=== PATIENT | male | born 1950 | race Caucasian/White ===

== ENCOUNTER 2023-03-21 10:02 | Outpatient (CLI) | payer MEDICARE, OTHER, SELFPAY ==
--- NOTE | 2023-03-21 10:20 | ECG_ITS ---
Measurements Intervals [place] Rate: 69 P: 49 MD: 140 QRS: 12 QRSD: 93 T: 34 QT: 370 QTc: 398 Interpretive Statements SINUS RHYTHM NORMAL ECG NO PREVIOUS ECG AVAILABLE FOR COMPARISON Electronically Signed On 03-21-2023 15:58:59 ASSISTANT FINANCE DIRECTOR by Ben Gallardo M.D.
[2023-03-21 10:58] LABS: Prothrombin Time 13.3 Seconds (11.1-14.7)
[2023-03-21 10:59] LABS: Partial Thromboplastin Time 27.5 SECONDS (22.3-36.8)
== END 2023-03-21 10:03 | disposition home or self-care (01) ==
PROVIDERS: PCP Family Medicine Sports Medicine; Visit Provider Urology
DX: N20.0 Calculus of kidney (principal); I10 Essential (primary) hypertension; Z01.818 Encounter for other preprocedural examination
CPT/HCPCS: 36415; 85610; 85730; 87086; 93005

== ENCOUNTER 2023-03-30 03:07 | Day surgery (SDC) | payer MEDICARE, OTHER, SELFPAY ==
--- NOTE | 2023-03-15 08:21 | P.HP_ITS ---
History of Present Illness History of Present Illness Consent: Risks, benefits, and alternatives have been discussed and questions answered. Patient agrees to proceed with procedure. Chief complaint: Lt Renal Stones Narrative: Iker Brenner is a 72 year old male recently in the emergency department with a 2 mm painful obstructing ureteral stone that passed spontaneously. Imaging demonstrated, in addition, a 6 and 7 mm left renal stone. After discussion of options he has elected for left ESWL. He is aware the risk including, not limited to, need for additional procedures, hematuria and perinephric hematoma. Review of Systems Review of Systems: All systems reviewed & are unremarkable except as noted in HPI and below Exam Const: General: no acute distress Resp: Effort & Inspection: normal respiratory effort GI: Inspection: non-distended GI Palp: No abdominal tenderness and No Guarding due to palpation present (GI) Auscultation: normal bowel sounds Assessment and Plan Assessment and plan (1) Left renal stone: Code(s): N20.0 - Calculus of kidney Status: Acute Plan * Left ESWL
[2023-03-19 11:32] VITALS: BMI 26.4
--- NOTE | 2023-03-19 11:42 | PC.NURSE ---
PRE-OP INSTRUCTIONS, PLEASE READ CAREFULLY Report to the Outpatient Waiting Room, entrance under the green pavilion located off [facility], at time _0600_ on date _03/30/23_. Planned Procedure Time: _0730_. Time changes happen often and if your time is changed the preop area will call you the afternoon before. - You and your visitor will be asked to self-screen and do not enter if you have any COVID symptoms. - A mask is optional within the hospital at this time. Patients may have clear liquids (water, carbonated beverages, clear teas, apple juice) until 3 hours prior to surgery (0430 AM) with a maximum of 20 ounces. - No food from midnight until time of surgery Take the following medications with a SIP of water the morning of surgery: _NONE_ DO NOT STOP ANY OF YOUR OTHER PRESCRIPTION MEDICATIONS PRIOR TO SURGERY ?EXCEPT THE FOLLOWING Medications to discontinue per DR. CHANG - _SUPPLEMENTS 7 DAYS PRIOR TO SURGERY (PER PT), Date to take last dose 03/22/23_ Please no make-up, nail sri lankan, hairspray, perfume, deodorant, or body powder the day of surgery. No jewelry (including any body piercings) or valuables the day of surgery, leave them at home. Please take a shower or bath the night before, or the morning of, surgery with an antibacterial soap. Wear comfortable, loose fitting clothing. - Jewelry must be removed prior to entering the operating room. Rings and piercings that are not removed may be cut off. - The hospital will not accept responsibility for valuables. - Please leave all valuables, including medications, at home the day of surgery. If you are going home after surgery, a licensed [employer] truck driver must drive you home. - NO public transportation without another adult if you receive anesthesia. - We recommend that an adult stay with you for 24 hours following discharge. - We also recommend that you do not drive, make important decision, drink alcoholic beverages, or take any drugs that were not prescribed by your health care provider for at least 24 hours after your discharge time. Follow any additional instructions given to you from your surgeon. If you or anyone in your household have experienced Covid symptoms in the past week, please notify your surgeon or the nurse liaison at the phone number below for possible testing. Telephone instructions given to _PATIENT_and asked if any additional questions and then verbalized understanding. Patient advised to call surgeon office or pre surgery nurse liaison [phone] if any additional questions.
--- NOTE | ~2023-03-30 | XR_ITS ---
EXAMINATION: XR abdomen/kub 1V DATE: 03/30/2023 06:12 INDICATION: Kidney stone. TECHNIQUE: A supine view of the abdomen on 2 radiographs was obtained. COMPARISON: None. FINDINGS: There are no dilated loops of bowel. Calcifications in the pelvis are likely phleboliths. T he kidneys are obscured by bowel. 9 mm and 6 mm calcifications overlying left kidney are likely stone s. IMPRESSION: 1. Left kidney stones. Reviewed, dictated and finalized at location A. OUT TECHNICIAN IMPRESSION: 1. Left kidney stones.
[2023-03-30] MEDS: LACTATED RINGERS 1,000 ML 30 ML IV CONT (06:30)
--- NOTE | 2023-03-30 06:31 | WPDHPUPDATE1 ---
History and Physical Update Update Date/Time: 03/30/23 06:31 History and Physical has been reviewed, including an updated exam of the patient. There are NO changes in the patient's condition. Risks, benefits, and alternatives have been discussed and questions answered. Patient agrees to proceed with procedure.
[2023-03-30 06:48] VITALS: BP 146/76; PULSE 83; RESP 16; TEMP 36.7; O2SAT 99
--- NOTE | 2023-03-30 07:09 | P.PNAN_ITS ---
Anes - Initial Pre Proc Eval Procedure: Operation Date: 03/30/23 07:30 Proposed Procedures p Left Renal Extracorporeal Shock Wave Lithotripsy - Monty Carrlilo MD Date/Time: 03/30/23 07:09 Surgeon: Monty Carrillo MD Pre Op Diagnosis: Lt Renal Stones Patient Data Age: 72 Gender: M Height: 1.83 m Weight: 89.8 kg Last Vital Signs Temp 36.7 C 03/30/23 06:48 Pulse 83 03/30/23 06:48 Resp 16 03/30/23 06:48 BP 146/76 H 03/30/23 06:48 Pulse Ox 99 03/30/23 06:48 O2 Del Method Room Air 03/30/23 06:48 Allergies Allergy/AdvReac Type Severity Reaction Status Date / Time No Known Allergies Allergy Verified 03/30/23 06:13 Home Medications Medication Instructions Recorded Confirmed Type atorvastatin 20 mg tablet 20 mg HS 03/19/23 03/19/23 History cholecalciferol (vitamin D3) 25 25 mcg PO HS 03/19/23 03/19/23 History mcg (1,000 unit) capsule coenzyme Q10 100 mg capsule (Co 100 mg PO HS 03/19/23 03/19/23 History Q-10) latanoprost 0.005 % eye drops 1 drp HS 03/19/23 03/19/23 History lisinopril 20 mg tablet 20 mg HS 03/19/23 03/19/23 History Patient hx anesthesia problems: none Family hx anesthesia problems: none Results Review: All pre-operative results and documents have been reviewed as part of the pre- operative evaluation. [facility] Social History Social History Smoking packs per day: 1 Smoking cigarettes per day: 20.0 Years smoked: 6 Smoking pack-years: 6.00 Smoking status: Former smoker Tobacco type: cigarettes Second hand tobacco smoke exposure: No Smoking end date: 04/02/75 Alcohol intake: never Substance use: never Substance use type: does not use Living arrangements: with family Spiritual care concerns: No Anes - Eval Final PreProcedure Day of Procedure 03/30/23 07:09 Patient weight: overweight Heart: regular rate and rhythm Lungs: clear to auscultation Airway: Mallampati scale class II Neurological: alert and oriented Last oral intake: >/= 8 hours ASA classification: III Emergent: no Anesthetic plan: proceed Anesthesia type and monitoring: general LMA and standard monitoring Results Review: All pre-operative results and documents have been reviewed as part of the pre-operative evaluation. Informed Consent: The patient's anesthetic plan and its attendant risks and benefits were discussed with the patient/family/POA. Questions were solicited and answers provided to the satisfaction of the patient/family/POA.
[2023-03-30] MEDS: ceFAZolin 2 GM/D5W 50 ML 2 GM/50 ML BAG IVPB (07:24)
--- NOTE | 2023-03-30 07:51 | W.PM.PROC2 ---
Procedure Note - Detailed Date of Procedure 03/30/23 Pre-op Diagnosis Left Renal Stones Post-op Diagnosis Same Procedure Performed Left ESWL Surgeon Monty Carrillo MD Anesthesia General Description of Procedure The patient was brought to the operative suite where supine was placed in the supine position on the Dornier lithotripsy table. Two stones in the left lower pole renal calyx, each measuring approximately 5-6mm, were treated with 2500 shocks at a power setting of 1-4 using the Dornier lithotriptor - spliting the shock essentially equally between each stone. There appeared to be excellent fragmentation of the stone. The patient tolerated the procedure well and was taken to the recovery room in good condition. Complications No immediate complications Condition Stable Disposition PACU
[2023-03-30] MEDS: KETOROLAC 15 MG/ML VIAL (*BKC) IV PUSH (07:54)
[2023-03-30 08:06] VITALS: BP 138/70; PULSE 85; RESP 22; TEMP 36.2; O2SAT 98
[2023-03-30 08:20] VITALS: BP 135/68; PULSE 89; RESP 20; O2SAT 99
[2023-03-30 08:35] VITALS: BP 138/77; PULSE 85; RESP 20; O2SAT 97
[2023-03-30 08:40] VITALS: BP 148/70; PULSE 78; RESP 18
[2023-03-30 09:10] VITALS: BP 139/71; PULSE 80; RESP 18
== END 2023-03-30 09:28 | disposition home or self-care (01) ==
PROVIDERS: PCP Family Medicine Sports Medicine; Visit Provider Urology
PROC: (CPT 50590; principal; 2023-03-30 07:30)
DX: N20.0 Calculus of kidney (principal); Z87.891 Personal history of nicotine dependence
CPT/HCPCS: 50590; 74018; J0690; J1100; J1885; J2405; J2704; J7120